=== PATIENT | male | born 1965 | race Caucasian/White ===

== ENCOUNTER 2020-05-07 04:04 | Outpatient (CLI) | payer MEDICAID, SELFPAY ==
[2020-05-09 17:11] LABS: COVID-19 RT-PCR Result NEGATIVE (Negative)
== END 2020-05-07 04:24 ==
PROVIDERS: PCP Family Medicine Adult Medicine; Visit Provider Surgery
DX: Z11.59 Encounter for screening for other viral diseases (principal); Z01.818 Encounter for other preprocedural examination
CPT/HCPCS: U0003

== ENCOUNTER 2020-05-12 10:07 | Day surgery (SDC) | payer MEDICAID, SELFPAY ==
--- NOTE | 2020-05-12 07:17 | W.COLOREPORT ---
Date of service: 05/12/20 Time of Service: 15:24 Colonoscopy Report Date of procedure: 05/12/20 Pre-op diagnosis general: Colon Cancer Screening Post-op diagnosis procedure note: other (polyps and diverticulosis) Procedure: Colonoscopy with polypectomy by cold forceps and hot snare Surgeon: Isabel Mallory Anesthesia proc note operative: other (General/ASA 1/Marcial Flores CRNA) Estimated blood loss (mL): 5 Pathology: other (sigmoid polyps x2) Complications: None Disposition: same day Indications: Mr. Zazueta is a pleasant 54-year-old gentleman who had a bout of diverticulitis in October of this year. He also complains of intermittent bright red blood per rectum. The blood is usually mixed with mucus. He does also tell me that when he was in the emergency department at [facility] in October they tested his stool and it was positive for occult blood. He has never had a colonoscopy before. The procedure was discussed with him in detail. We went over risks, benefits and complications. His questions were entertained and answered to his satisfaction. We also reviewed Covid testing and quarantine requirements. Risks, benefits and complications have been reviewed. Complications include but are not limited to bleeding, pain, perforation, missed small lesion/polyp, sore throat, aspiration and adverse reaction to the medications. Questions were entertained and answered to their satisfaction and they wished to proceed. No guarantees were given or implied. COVID-19 testing explained to the patient. Reason for test reviewed. Quarantine per state requirements reviewed with patient. Patient understands and agrees to testing. Proceed with colonoscopy and Covid testing. Prep: Miralax/Dulcolax Procedure Start Time: 15:24 Procedure End Time: 16:04 Retraction Time: 20 minutes Findings: One polyp in the sigmoid colon >1 cm in size was within a diverticulum Second larger pedunculated polyp in the sigmoid colon moderate diverticulosis Procedure Description: After informed consent was obtained the patient was taken to the procedure room and placed in a left decubitous position. Monitors were applied and a time out was done. The patients name, date of , procedure, allergies to medications and metal in their body was reviewed. The patient was then sedated. Once sedated and comfortable a rectal exam was done. External exam was normal. Internal exam revealed a normal sphincter tone and no palpable masses. The prostate felt smooth. The scope was then introduced and retro-flexed. No internal hemorrhoids were identified. The scope was then advanced to the cecum without difficulty. The ileocecal valve and appendiceal orifice were identified. The prep was adequate. The scope was then slowly retracted over 20 minutes back into the rectum. Polyps were removed with cold forceps. The polyp was at the edge of a diverticulum in the sigmoid colon. A second larger then 1 cm pedunculated polyp was removed with a hot snare in the sigmoid colon. There was moderate diverticulosis of the sigmoid colon. The scope was removed and the patient was woken up and taken back to Same day surgery in stable condition. The patient tolerated the procedure well and there were no immediate complications. Follow up: The patient should follow up in 3-5 years unless they develop changes in bowel habits or other new gastrointestinal complaints.
--- NOTE | 2020-05-12 07:18 | W.PM.DSUDISC ---
Discharge Plan Disposition Patient Disposition: HOME Condition: Good Discharge Details Reason For Visit: Colonoscopy Attending Provider: Isabel Mallory Primary Care Provider: Francisco Piña Home Meds and New Rx's Prescriptions: No Action No Known Home Meds RF: 0 Discharge Instructions Instructions: Diverticulosis (DC), Colorectal Polyps (DC) Additional Instructions: Findings: 2 polyps Follow up: depends on the final pathology Please call if you develop: fevers >101.5 Nausea or Vomiting Abdominal pain that is not transient DAY SURGERY UNIT POST ENDOSCOPY INSTRUCTIONS 1. Because there will be medication in your system for the next 24 hours, you may feel a little sleepy. Your coordination will be affected. Therefore: a. Do not drive or operate dangerous equipment for 24 hours. b. Do not drink alcohol beverages for 24 hours (not even beer). c. Plan to go home and rest for the day. 2. Generally there are no restrictions on your activity after a day or so has gone by, but you may feel a bit fatigued for a few days. 3 After you arrive home you may have a light meal and return to a normal diet as you can tolerate it without feeling sick to your stomach. 4. After surgery, you may feel pain or discomfort. This should be only transient, but if it persists please contact your doctor. 5. If there are any questions regarding the findings of your procedure, please feel free to contact your doctor. 6. If you are unable to contact your doctor with a problem, contact the hospital at [phone]. 7. Continue all your regular medications unless directed otherwise. I understand the above instructions and have no questions. Signature of Patient or Responsible Adult Escort Date/Time Name of Responsible Adult Escort Signature of Nurse Date/Time Activity:: Activity as Tolerated Diet:: As Tolerated Discharge Orders Discharge Orders: Discharge Order (Routine); Ordered 05/12/20 Ordered By: Isabel Mallory
[2020-05-12 10:20] VITALS: BP 123/84; PULSE 68; RESP 18; TEMP 36.2; O2SAT 97
[2020-05-12] MEDS: Lactated Ringers 1,000 ML 80 ML IV (10:39)
--- NOTE | 2020-05-12 15:30 | BOWEL_PTH ---
PATIENT: Enrike Zazueta LOC: [facility] U#:[id number] AGE/SX: 54/M ROOM: RE05/12/[address]: Isabel Mallory MD : 1965 BED: DIS: 05/12/2020 SPEC #: [id number] RECD: 05/12/20 16:23 STATUS: ABIGAIL REQ #: [id number] SABRINA: 05/12/20 15:[address]: Isabel Mallory DEPT: Surgical Specimen RECD BY: Nicole Delatorre ENTERED: 05/12/20 16:25 SP TYPE: Bowel OTHR DR: Francisco Piña Tissues: 1 - BIOPSY BOWEL 2 - BIOPSY BOWEL Procedures: GROSS AND MICRO LEVEL 4 Comments: [id number]
[2020-05-12] MEDS: Endoscopic Tattoo 5 ML SYR IJ (16:03)
[2020-05-12 16:49] VITALS: BP 130/92; PULSE 70; RESP 16; TEMP 36.5; O2SAT 100
== END 2020-05-12 17:35 | disposition home or self-care (01) ==
LOC: SUR 10:07
PROVIDERS: PCP Family Medicine Adult Medicine; Visit Provider Surgery
PROC: 0DJD8ZZ Inspection of Lower Intestinal Tract, Via Natural or Artificial Opening Endoscopic (ICD-10-PCS; CPT 45378; principal; 2020-05-12 12:00)
DX: Z12.11 Encounter for screening for malignant neoplasm of colon (principal); D12.5 Benign neoplasm of sigmoid colon; K57.30 Diverticulosis of large intestine without perforation or abscess without bleeding
CPT/HCPCS: 45385; 45380; 88305; J2001; J2704

== ENCOUNTER 2020-11-10 08:40 | Observation (INO) | payer MEDICAID, SELFPAY ==
[2020-11-10] VITALS (70 sets, daily range): BP systolic 103–152; BP diastolic 66–89; PULSE 64–81; RESP 14–25; TEMP 36.6–37; O2SAT 96–100
--- NOTE | 2020-11-10 08:30 | RT.EKG_ITS ---
APPROVED REPORT Exam: Resting ECG Reason for Exam: chest pain Patient Location: E HR:79 bpm ECG Measurements Heart Rate 79 AXIS WA 178 P 79 QRSd 83 QRS 55 QT 356 T 21 QTc 408 Conclusion Sinus rhythm. Right atrial enlargement Left ventricular hypertrophy w repolraiztion changes lateral vs st dep, no comparison available
--- NOTE | 2020-11-10 08:45 | DI.RAD_ITS ---
Exam(s) XR CHEST 2V PA LATERAL EXAM: XR CHEST 2V PA LATERAL CLINICAL HISTORY: Chest pain, SOB. TECHNIQUE: 2D digital imaging was performed. COMPARISON: No exams were available for comparison FINDINGS: Heart size is normal. The mediastinum is not widened. Lungs are clear. No infiltrates nor pleural effusions. No pneumothorax. There is abundant free air subjacent to the hemidiaphragms in the abdomen. IMPRESSION: No acute pulmonary findings.However, there is abundant free intraperitoneal air. Result called to ER provider DATA REPOSITORY: RADIATION DOSE DELIVERED:
--- OUTSIDE RECORDS SUMMARY | 2020-11-10 08:50 | XMS_ITS ---
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 disorders of kidney and ureter ALLERGIES No Known Allergies ENCOUNTERS Encounter Location Date Diagnosis [address] [place] Jul, Di sorder of [facility] and [facility] [place] ureter, unspecif ied N28.9 [id number] [place] Jun, Ot her specified disorders [facility] [place] of kidney and ur eter [id number] [place] Mar, Po lyp of corpus uteri [facility] [place] N84.0 and Polyp of colon [address] [address] [place] Feb, En counter for general [facility] [place] adult medical ex amination [phone] without abnormal findings Z00.[address] [place] Jan, En counter for general [facility] [place] adult medical ex amination [phone] without abnormal findings Z00.00 and Unspe cified abdominal pain R 10.9 IMMUNIZATIONS No Known Immunizations SOCIAL HISTORY Qualifiers Date Never Smoker REASON FOR REFERRAL FUNCTIONAL STATUS PLAN OF CARE Activity Details Follow Up prn Reason: Pending Test COMPREHENSIVE METABOLIC PROF ILE Pending Test CT ABD/PELVIS W&WO CONTRAST VITAL SIGNS Temperature 97.2 degrees Fahrenheit 2020-08-02 Temperature 98.2 degrees Fahrenheit 2019-02-11 Heart Rate 70 /min 2020-08-02 Heart Rate 72 /min 2019-04-22 Heart Rate 64 /min 2019-02-11 Height 72 in 2020-08-02 Height 72 in 2019-04-22 Height 72 in 2019-02-11 Weight 154 lbs 2020-08-02 Weight 162 lbs 2019-04-22 Weight 162 lbs 2019-02-11 BMI 20.88 kg/m2 2020-08-02 BMI 21.97 kg/m2 2019-04-22 BMI 21.97 kg/m2 2019-02-11 Respiratory Rate 16 /min 2020-08-02 Oximetry 96 % 2020-08-02 Oximetry 96 % 2019-04-22 Oximetry 96 % 2019-02-11 Blood pressure systolic 100 mm Hg 2020-08-02 Blood pressure diastolic 75 mm Hg 2020-08-02 MEDICATIONS Unknown Medications PROCEDURES Procedure Date Ordered Result Body Site venipuncture Mar 04, 2019 RESULTS Name Result Date Reference Range Colonoscopy CBC, WITH AUTO DIFF 2019-11-03 WBC 8.1 4.8-10.8 RBC 5.20 4.70-6.10 HGB 15.2 14.0-18.0 HCT 44.9 42.0-52.0 MCV 86.3 80.0-94.0 MCH 29.2 27.0-31.0 MCHC 33.9 32.0-37.0 RDW-CV 13.7 11.5-14.5 PLT 185 130-400 MPV 9.9 7.4-10.4 NE% 77.0 42.2-75.2 LY% 13.0 20.5-51.1 MO% 8.9 1.7-9.3 EO% 0.2 0.9-2.9 BA% 0.2 0.0-0.8 NE# 6.2 1.4-6.5 LY# 1.1 1.2-3.4 MO# 0.7 0.1-0.6 EO# 0.0 0.0-0.2 BA# 0.0 0.0-0.2 COMPREHENSIVE METABOLIC PROFILE 2019-11-03 SODIUM 138 136-145 POTASSIUM 4.4 3.5-5.1 CHLORIDE 103 98-111 CO2 28 22-32 CALCIUM 9.0 8.9-10.3 GLUCOSE 107 74-106 BUN 14 8-26 CREATININE 0.88 0.61-1.24 TOTAL BILIRUBIN 0.8 0.3-1.2 TOTAL PROTEIN 7.5 6.5-8.1 ALBUMIN 4.1 3.5-5.0 ALKALINE PHOS 58 32-92 AST 24 15-41 ALT 21 17-63 A/GAP 7.0 3.0-12.0 B/CR 15.9 8.0-20.0 OSMOLARITY 277 275-295 GLOBULIN 3.4 2.3-3.5 A/G 1.2 1.0-2.5 LACTIC ACID, PLASMA 2019-11-03 LACTIC ACID 1.2 0.5-2.2 LIPASE 2019-11-03 LIPASE 45 18-51 URINALYSIS DIP w/REFLEX MICRO 2019-11-03 COLOR Yellow YELLOW CLARITY Clear CLEAR SPECIFIC GRAVITY 1.025 1.000-1.030 pH 6.5 5.0-8.0 PROTEIN Negative NEGATIVE GLUCOSE Negative NEGATIVE KETONES Negative NEGATIVE UROBILINOGEN 0.2 E.U./dL 0.2 E.U./DL BILIRUBIN Negative NEGATIVE BLOOD Negative NEGATIVE LEUKOCYTES Negative NEGATIVE NITRITES Negative NEGATIVE CT ABD/PELVIS W CONTRAST 2019-11-03 COMPREHENSIVE METABOLIC PANEL 2019-03-04 GLUCOSE 76 65-99 UREA NITROGEN (BUN) 18 7-25 CREATININE 0.85 0.70-1.33 eGFR NON-AFR. GERMAN 99 > OR = 60 eGFR 115 > OR = 60 BUN/CREATININE RATIO NOT APPLICABLE 6-22 SODIUM 138 135-146 POTASSIUM 4.5 3.5-5.3 CHLORIDE 103 98-110 CARBON DIOXIDE 29 20-32 CALCIUM 9.3 8.6-10.3 PROTEIN, TOTAL 7.0 6.1-8.1 ALBUMIN 4.4 3.6-5.1 GLOBULIN 2.6 1.9-3.7 ALBUMIN/GLOBULIN RATIO 1.7 1.0-2.5 BILIRUBIN, TOTAL 0.5 0.2-1.2 ALKALINE PHOSPHATASE 54 40-115 AST 19 10-35 ALT 16 9-46 TSH, 3RD GENERATION W/REFLEX TO FT4 2019-03-04 TSH W/REFLEX TO FT4 3.41 0.40-4.50 CBC (INCLUDES DIFF/PLT) 2019-03-04 WHITE BLOOD CELL COUNT 6.2 3.8-10.8 RED BLOOD CELL COUNT 5.20 4.20-5.80 HEMOGLOBIN 15.3 13.2-17.1 HEMATOCRIT 45.7 38.5-50.0 MCV 87.9 80.0-100.0 MCH 29.4 27.0-33.0 MCHC 33.5 32.0-36.0 RDW 13.2 11.0-15.0 PLATELET COUNT 193 140-400 MPV 10.2 7.5-12.5 ABSOLUTE NEUTROPHILS 3776 1716-2711 ABSOLUTE LYMPHOCYTES 3055 129-4831 ABSOLUTE MONOCYTES 533 200-950 ABSOLUTE EOSINOPHILS 50 15-500 ABSOLUTE BASOPHILS 37 0-200 NEUTROPHILS 60.9 LYMPHOCYTES 29.1 MONOCYTES 8.6 EOSINOPHILS 0.8 BASOPHILS 0.6 LIPID PANEL 2019-03-04 CHOLESTEROL, TOTAL 208 <200 HDL CHOLESTEROL 47 >40 TRIGLYCERIDES 148 <150 LDL-CHOLESTEROL 134 CHOL/HDLC RATIO 4.4 <5.0 NON HDL CHOLESTEROL 161 <130 XR ABDOMEN 2 VIEWS 2019-02-11 REASON FOR VISIT f/u CT scan, repeat CT scan, f/u labs, LABS, new patient, annual physical, 3 week abdominal pain Insurance Providers [facility] Member Patient Patient Patient Patient Patient Subscriber Subscriber Subscriber Group Insurance Plan Plan Plan Plan ID Relationship Address Phone Name Date of ID Name Date of No Type Insurance Insurance Insurance Coverage to Subscriber Address Phone Name Dates [employer] [phone] [employer] self Enrike [id number] [place] [address] MEDICAID CLAIMS [id number] [place] self [place] [id number] [place] [employer] [address] [place] [address] [facility] [id number]
--- NOTE | 2020-11-10 08:55 | W.ED.GENAD ---
Discharge Plan Disposition Patient Disposition: [facility] INPATIENT Condition: Stable Discharge Details Clinical Impression: Left facial numbness Admit Date/Time: 11/10/20 14:49 Admit Provider: Aurelio Mendosa Attending Provider: Aurelio Mendosa Primary Care Provider: Francisco Piña ED Provider: Donna Kumar Medical Decision Making <Donna Kumar - Last Filed: 11/10/20 16:24> 55-year-old male presents to the ER chief complaint of left-sided chest pain which she describes as sharp radiates into his left arm and left side face. He describes this as numbness. He on initial exam he states that his pain is approximately 3 out of 10. He is postop from recent right kidney mass (Partial nephrectomy) removal surgery at [facility]. He was released from the hospital there 4 days ago. She also reports some mild shortness of breath with a productive cough of yellow sputum. Denies hemoptysis no leg swelling. Denies any fever or chills. He is alert and oriented x4 upon initial exam. Only medications that he is taking currently include oxycodone and Tylenol prior to arrival. Past medical history includes tubular adenoma of colon, diverticulitis. He is a non-smoker. He does report some significant family cardiac history. He reports 2 older brothers recently had stents placed. Work-up ordered including CBC, CMP, magnesium and serial troponins. 08 46: EKG was reviewed by [Dr. Zaheer Godfrey] ER attending, please see his official report. No old EKG available for comparison, repolarization changes in the lateral leads. Normal sinus rhythm, no STEMI. Differential diagnosis includes but not limited to CVA, PE, coronary artery disease. Patients Urologist is Honey Padgett at this time unable to pull up records from [facility]. Patient transported to x-ray. Initial labs show CBC largely within normal limits, no leukocytosis lymphocytes 1.10, sodium 144, potassium 3.4 BUN 17, creatinine 1.0 GFR greater than 60. Patient does have some transaminitis, AST 89, ALT 194 alk phos 160 initial troponin within normal limits. Less than 0.05. CT a brain and neck ordered and CT chest rule out PE. XR CHEST 2V PA LATERAL EXAM: XR CHEST 2V PA LATERAL CLINICAL HISTORY: Chest pain, SOB. TECHNIQUE: 2D digital imaging was performed. COMPARISON: No exams were available for comparison FINDINGS: Heart size is normal. The mediastinum is not widened. Lungs are clear. No infiltrates nor pleural effusions. No pneumothorax. There is abundant free air subjacent to the hemidiaphragms in the abdomen. IMPRESSION: No acute pulmonary findings.However, there is abundant free intraperitoneal air. Result called to ER provider Patient has noted free air in the diaphragm as reported above, this could be expected postop. 1001: Upon further questioning of patient's family he has had a right-sided partial nephrectomy, call received from diagnostic imaging tax examining technician with concern for the amount of contrast to be given for CTA and CT chest. At this time his GFR is greater than 60. I did discuss with her that if cannot give contrast from both would prefer the chest CT with contrast CT head without. 10:34 AM: Discussed CT results with radiologist who notes some hypodensity areas on the noncontrast head CT. He recommends an MRI/MRA of the brain without contrast to further characterize and rule out CVA. Discussed plan with patient and family who verbalized understanding. Patient is alert and oriented hemodynamically stable, he does report left-sided headache which began approximately 2 AM last night which has now resolved after taking Tylenol. EXAM: CT CHEST PE CTA CLINICAL HISTORY: Chest pain, recent Surgery, R/O PE. TECHNIQUE: Imaging Protocol: CT angiography of the chest was performed using pulmonary embolus protocol. Multi planar reconstructions were performed. CONTRAST MATERIAL: Intravenous: Omnipaque 350 Contrast volume: 100 cc COMPARISON: No exams were available for comparison FINDINGS: CHEST: Free intraperitoneal air noted subjacent to both hemidiaphragms. PULMONARY ARTERIES: There are no intraluminal filling defects to suggest acute pulmonary emboli. LUNGS: Atelectasis-mild infiltrate in the right lung base, exhibiting benign appearance. No associated pleural effusion. Lesser amount of the same findings seen in the opposite-left lung base also in the posterior basal segment of the lower lobe.. No obvious focal findings in trachea and mainstem bronchi. MEDIASTINUM: There is no hilar nor mediastinal adenopathy. CARDIAC: Heart size is upper normal. There is no pericardial effusion.Caliber of the thoracic aorta is within normal limits. There is no significant shift of the interventricular septum. PARTIALLY VISUALIZED UPPERMOST ABDOMEN: There is pneumoperitoneum. Gallstones also noted. OSSEOUS: No significant osseous lesions.. IMPRESSION: 1. No evidence of acute pulmonary emboli. No evidence of pulmonary infarction.Mild infiltrate in the lung bases, right more than left. No pleural effusions. No ominous pulmonary nodules nor intrathoracic adenopathy. 2. Cholelithiasis is incidentally noted. Also pneumoperitoneum (recent partial nephrectomy). CT Head W/O: FINDINGS: There are no skull fractures nor fluid in the visualized paranasal sinuses. There is no evidence of intracranial hemorrhage, mass effect, or shift of midline structures. There are no extra-axial fluid collections. The ventricles are not enlarged or shifted and there is no blood within the ventricular system nor within the basal cisterns. There is a well-defined hypodensity measuring 7 x 5 millimeters on the left side which is possibly sub lenticular cyst. However, there is also another 4 x 3 millimeter hypodensity on left side at the level of the external capsule. Both nonhemorrhagic. Similar findings are not seen on the opposite-right side. No associated hemorrhage or surrounding edema. IMPRESSION: Two areas of abnormal hypodensity in left side of the brain as described above. Recommend follow-up MRI when clinically possible. 10:30 AM: MRI MRA brain without contrast ordered. At this time PE has been ruled out, initial troponin is within normal limits so suspicion for cardiac event decreased, high suspicion for possible CVA status post partial nephrectomy. 1100: DI requested to send Images to [facility], Will consult with neurology for possible transfer. 1113: Spoke with Sanford at [facility] transfer center regarding neurology consult and possible transfer. [facility] to call me back. 1135: Repeat neurological exam, patient reports that numbness is unchanged, horizontal jerk nystagmus still present, patient is able to puff out his cheeks at this time, continues to have no pronator drift, left lower extremity somewhat weaker than the right. He remains alert and oriented x4, talkative. 1151: Discussed patient case and details with Dr. Servin with with neurology at [facility] ED would like to speak after the MRI/MRA is done. His recommendations include aspirin which was already given, will review triage the urgency for transfer after MRI read. 1357: MR BRAIN WO EXAM: MR BRAIN WO CLINICAL HISTORY: Left side facial numbness, TECHNIQUE: Multiplanar multisequence MRI of the brain was performed. COMPARISON: CT CT HEAD WO from 11/10/[address] HEAD WO from 11/10/2020 FINDINGS: CEREBRAL PARENCHYMA: There is no evidence of intracranial hemorrhage, mass effect, or shift of midline structures. There are no extra-axial fluid collections. Ventricles are not enlarged or shifted. There is no significant focal signal abnormality in the cerebellar hemispheres nor within the jewell, midbrain, and thalami. There is a small 3 millimeter well-defined CSF intensity finding in the left external capsule which corresponds to what is seen on the CT scan. This, however, does not exhibit abnormal focal signal on diffusion imaging. There is no evidence of acute territorial infarction. PITUITARY GLAND: No mass nor parasellar abnormality. No obvious abnormality in the cavernous sinuses. FLOW VOIDS: The expected flow void are noted. No evidence of obvious aneurysm nor obvious vascular malformation. PARANASAL SINUSES: The visualized paranasal sinuses appear unremarkable. No obvious finding ORBITS: No obvious findings. IMPRESSION: No significant acute intracranial findings on this noninfused MRI scan of the brain. Small nonacute lacune evident in the left external capsule. 1435: Spoke with Dr. Hensley with neurology at [facility], discussed MRI results at this time he sees no indication for need for transfer nor does he give any further recommendations at this time. Discussed findings with patient patient son verbalized understanding. At this time I do recommend admission for observation and rule out TIA. 1443: Call to hospitalist Dr. Mendosa regarding possible admission for observation. He agrees to accept patient for transfer. Plan to admit here for observation. <Zaheer Godfrey MD - Last Filed: 11/10/20 13:34> Patient seen, examined, discussed with Kumar. I agree with her assessment and plan including consultation and advanced imaging. HPI <Donna José - Last Filed: 11/10/20 16:24> General Mode of arrival: ambulatory. Date/Time Provider Initiated Documentation: 11/10/20 08:40. Limitations to Documentation: no limitations. Information obtained by: patient. HPI Narrative: 55-year-old male presents to the ER chief complaint of left-sided chest pain which he describes as sharp radiates into his left arm and left side face. He describes this as numbness. He on initial exam he states that his pain is approximately 3 out of 10. He is postop from recent right kidney mass (Partial nephrectomy) removal surgery at [facility]. He was released from the hospital there 4 days ago. She also reports some mild shortness of breath with a productive cough of yellow sputum. Denies hemoptysis no leg swelling. Denies any fever or chills. He is alert and oriented x4 upon initial exam. Only medications that he is taking currently include oxycodone and Tylenol prior to arrival. Past medical history includes tubular adenoma of colon, diverticulitis. He is a non-smoker. He does report some significant family cardiac history. He reports 2 older brothers recently had stents placed. Related Data Home Medications Medication Instructions Recorded Confirmed oxycodone 5 mg PO PRN 11/10/20 Allergies Allergy/AdvReac Type Severity Reaction Status Date / Time No Known Allergies Allergy Verified 11/10/20 08:50 General Stated Complaint: Chest Pain NIEVES: 2 Review of Systems <Donna Kumar - Last Filed: 11/10/20 16:24> Narrative: Constitutional: Negative for weight loss, alert and oriented, well groomed, normal body habitus, appears comfortable. Denies fever or chills. HEENT: Denies trauma, headaches, blurry vision, nasal discharge, sore throat, trouble swallowing. Chest: Denies palpitations, irregular rhythm, hypertension. Respiratory: Denies hemoptysis. Reports shortness of breath, cough with yellow productive sputum. GI: Denies abdominal pain, nausea, vomiting, constipation. Endorses diarrhea. : Denies dysuria, hematuria, rectal bleeding. Recent right kidney surgery. Neuro: Denies dizziness, blurry vision, weakness, syncope, headache. Reports left-sided facial numbness and left arm numbness. Hematologic: Denies easy bruising, intolerance to heat or cold, hair loss. PFSH <Donna Kumar - Last Filed: 11/10/20 16:24> Medical History Hx of diverticulitis of colon (~11/15/19) Family History Mother , of complications of Trauma. Was hit by a truck while crossing the road Kidney malignancy Paternal Uncle Colon cancer Social History Smoking/Tobacco Use Status: Never Smoking risk assessment performed?: Yes Alcohol Intake: current Alcohol Intake frequency: holidays/special occasions only Drug use: Never Substance use type: does not use Current gender identity: male Do you feel safe at home: Yes Do you feel safe in your relationship?: Yes Exam <Donna Kumar - Last Filed: 11/10/20 16:24> Narrative Exam Narrative: Constitutional: Alert and oriented x3. Appears stated age. Normal body habitus. Head: Normocephalic, no trauma. Eyes: Pupils PERRLA, Red reflex noted, EOM's intact. Does have some jerk nystagmus, 2 beat Seccade. Eyelids symmetrical without lesions, discharge, or swelling. ENT: Bilateral TM's WNL, External ear normal to inspection, no mastoid TTP, swelling, or erythema, Nasal turbinates WNL, no nasal discharge. Normal dentition, Posterior pharynx WNL, no exudate. Chest: RRR, Normal S1, S2, distal pulses intact. Resp: Lungs clear to auscultation bilaterally, no wheezes, rales, or rhonchi. Abdomen: Healing laparoscopic incisions noted to the right lower abdominal wall, Dermabond covering incision, no surrounding erythema, induration or swelling noted. Musculoskeletal: Normal gait, 5/5 strength to all four extremities. Skin: No suspicious rashes or lesions. Capillary refill less than 2 sec. Neurologic: Cranial nerves II-XII intact. Alert and oriented x 3. Bilateral [id number]-yy-[id number] lower extremities intact. No pronator drift. Strength 4+ left lower extremity, patient unable to blow out cheeks, 2 beat horizontal seccade noted on EOM exam, slight left mouth downward facial droop. Hematologic/Lymphatic: No ecchymosis, no lymphadenopathy. Course <Donna José - Last Filed: 11/10/20 16:24> Vital Signs Vital signs: Vital Signs Temperature 36.6 C 11/10/20 08:45 Pulse 81 11/10/20 08:45 Respiratory Rate 16 11/10/20 08:45 Blood Pressure 152/83 H 11/10/20 08:45 Pulse Oximetry 99 11/10/20 08:45 Temperature 36.6 C 11/10/20 08:45 Temperature Source Skin 11/10/20 08:45 Pulse 81 11/10/20 08:45 Respiratory Rate 16 11/10/20 08:45 Respiratory Effort Non-Labored 11/10/20 08:45 Blood Pressure 152/83 H 11/10/20 08:45 Blood Pressure Position Supine 11/10/20 08:45 Pulse Oximetry 99 11/10/20 08:45 Pain Level 1 11/10/20 08:45
[2020-11-10] MEDS: Aspirin 81 MG CHEW 324 MG CH (09:00)
[2020-11-10 09:07] LABS: Abs Immature Grans 0.02 10^3/uL (0.0-0.06); Absolute Basophil Count 0.02 10^3/uL (0.0-0.2); Absolute Eosinophil Count 0.09 10^3/uL (0.0-0.7); Absolute Monocyte Count 0.53 10^3/uL (0.1-0.8); Absolute Neutrophil Count 3.86 10^3/uL (1.2-6.7); Basophils % 0.4; Eosinophils % 1.6; HCT 43.6 % (40.0-50.0); HGB 14.8 g/dL (13.5-17.5); Immature Grans % 0.4; Lymphocytes % 19.6; MCH 29.7 pg (27.0-33.0); MCHC 33.9 % (32.0-36.0); MCV 87.6 fL (80-95); Monocytes % 9.4; Neutrophils % 68.6; Nucleated RBC 0 %; Platelet Count 203 10^3/uL (130-400); RBC 4.98 10^6/uL (4.36-5.78); RDW 12.8 % (11.8-14.1); RDW-SD 40.9 fL; WBC 5.62 10^3/uL (4.4-10.8)
[2020-11-10 09:22] LABS: ALT 194 U/L (16-63); AST 89 U/L (15-37); Albumin 3.4 g/dL (3.4-5.0); Alkaline Phosphatase 160 U/L (46-116); Anion Gap 7.3 mmol/L (3-11); BUN 17 mg/dL (7-18); Bilirubin, Total 0.6 mg/dL (0.2-1.0); CO2 31.7 mmol/L (21.0-32.0); Chloride 105 mmol/L (98-107); Glucose 101 mg/dL (74-106); Potassium 3.4 mmol/L (3.5-5.1); Sodium 144 mmol/L (136-145); Total Protein 7.7 g/dL (6.4-8.2)
[2020-11-10 09:24] LABS: Troponin I < 0.05 ng/mL (<0.06)
--- NOTE | 2020-11-10 10:01 | DI.CT_ITS ---
Exam(s) CT HEAD WO EXAM: CT HEAD WO CLINICAL HISTORY: Facial numbness, Facial droop R/O CVA. TECHNIQUE: Imaging Protocol: Axial computed tomography images with coronal and sagittal reformatted images were created and reviewed COMPARISON: CR XR CHEST 2V PA LATERAL from 11/10/2020 CR XR CHEST 2V PA LATERAL from 11/10/2020 FINDINGS: There are no skull fractures nor fluid in the visualized paranasal sinuses. There is no evidence of intracranial hemorrhage, mass effect, or shift of midline structures. There are no extra-axial fluid collections. The ventricles are not enlarged or shifted and there is no blo od within the ventricular system nor within the basal cisterns. There is a well-defined hypodensity measuring 7 x 5 millimeters on the left side which is possibly titus b lenticular cyst. However, there is also another 4 x 3 millimeter hypodensity on left side at the l evel of the external capsule. Both nonhemorrhagic. Similar findings are not seen on the opposite-ri ght side. No associated hemorrhage or surrounding edema. IMPRESSION: Two areas of abnormal hypodensity in left side of the brain as described above. Recommend follow-up MRI when clinically possible. RADIATION DOSE DELIVERED: 799.94mGy.cm Total DLP DATA REPOSITORY: All CT scans at this facility are submitted to the National Radiology Data Registry (NRDR) Dose Index Registry (DIR) with the [employer] ([employer]). RADIATION OPTIMIZATION: All CT scans at this facility use at least one of these dose optimization te chniques: automated exposure control; mA and/or kV adjustment per patient size (includes targeted exa ms where dose is matched to clinical indication); or iterative reconstruction.
--- NOTE | 2020-11-10 10:09 | DI.CT_ITS ---
Exam(s) CT CHEST PE CTA EXAM: CT CHEST PE CTA CLINICAL HISTORY: Chest pain, recent Surgery, R/O PE. TECHNIQUE: Imaging Protocol: CT angiography of the chest was performed using pulmonary embolus zhou col. Multi planar reconstructions were performed. CONTRAST MATERIAL: Intravenous: Omnipaque 350 Contrast volume: 100 cc COMPARISON: No exams were available for comparison FINDINGS: CHEST: Free intraperitoneal air noted subjacent to both hemidiaphragms. PULMONARY ARTERIES: There are no intraluminal filling defects to suggest acute pulmonary emboli. LUNGS: Atelectasis-mild infiltrate in the right lung base, exhibiting benign appearance. No associat ed pleural effusion. Lesser amount of the same findings seen in the opposite-left lung base also in the posterior basal segment of the lower lobe.. No obvious focal findings in trachea and mainstem br onchi. MEDIASTINUM: There is no hilar nor mediastinal adenopathy. CARDIAC: Heart size is upper normal. There is no pericardial effusion.Caliber of the thoracic aorta is within normal limits. There is no significant shift of the interventricular septum. PARTIALLY VISUALIZED UPPERMOST ABDOMEN: There is pneumoperitoneum. Gallstones also noted. OSSEOUS: No significant osseous lesions.. IMPRESSION: 1. No evidence of acute pulmonary emboli. No evidence of pulmonary infarction.Mild infiltrate in the lung bases, right more than left. No pleural effusions. No ominous pulmonary nodules nor intrathor acic adenopathy. 2. Cholelithiasis is incidentally noted. Also pneumoperitoneum (recent partial nephrectomy). RADIATION DOSE DELIVERED: 326.02mGy.cm Total DLP DATA REPOSITORY: All CT scans at this facility are submitted to the National Radiology Data Registry (NRDR) Dose Index Registry (DIR) with the [employer] (ACR). RADIATION OPTIMIZATION: All CT scans at this facility use at least one of these dose optimization te chniques: automated exposure control; mA and/or kV adjustment per patient size (includes targeted exa ms where dose is matched to clinical indication); or iterative reconstruction.
[2020-11-10] MEDS: Normal Saline 250 ML IV (10:10)
--- NOTE | 2020-11-10 10:15 | DI.MRI_ITS ---
Exam(s) MR BRAIN WO EXAM: MR BRAIN WO CLINICAL HISTORY: Left side facial numbness, TECHNIQUE: Multiplanar multisequence MRI of the brain was performed. COMPARISON: CT CT HEAD WO from 11/10/[address] HEAD WO from 11/10/2020 FINDINGS: CEREBRAL PARENCHYMA: There is no evidence of intracranial hemorrhage, mass effect, or shift of midline structures. There are no extra-axial fluid collections. Ventricles are not enlarged or shifted. There is no significant focal signal abnormality in the cerebellar hemispheres nor within the jewell, m idbrain, and thalami. There is a small 3 millimeter well-defined CSF intensity finding in the left external capsule which c orresponds to what is seen on the CT scan. This, however, does not exhibit abnormal focal signal on diffusion imaging. There is no evidence of acute territorial infarction. PITUITARY GLAND: No mass nor parasellar abnormality. No obvious abnormality in the cavernous sinuses. FLOW VOIDS: The expected flow void are noted. No evidence of obvious aneurysm nor obvious vascular ma lformation. PARANASAL SINUSES: The visualized paranasal sinuses appear unremarkable. No obvious finding ORBITS: No obvious findings. IMPRESSION: No significant acute intracranial findings on this noninfused MRI scan of the brain. Small nonacute lacune evident in the left external capsule. DATA REPOSITORY:
--- NOTE | 2020-11-10 10:15 | DI.MRI_ITS ---
Exam(s) MR ANGIO BRAIN WO EXAM: MR ANGIO BRAIN WO CLINICAL HISTORY: R/O CVA, Left sided facial numbness, droop TECHNIQUE: Performed on 1.5 riccardo unit with [id number] sequence. No IV contrast. COMPARISON: CT scan earlier today was reviewed. Also conventional brain MRI. FINDINGS: ANTERIOR CIRCULATION: Both internal carotid arteries are patent in the skull base-carotid canals as w ell as within the cavernous sinuses. Supraclinoid aspects are patent. Both middle cerebral arteries are patent. No intraluminal thrombus nor aneurysms evident in these vessels out to the sylvian fiss ure branches. Both A1 segments are patent as are the anterior cerebral arteries. There is no evidence of aneurysm at the level of the anterior communicating artery. POSTERIOR CIRCULATION: The basilar artery is formed at the skull base by both vertebral arteries. the basilar artery ascend s in the midline with normal luminal diameter. distally it gives off superior cerebellar arteries an d above this level terminates as patent bilateral posterior cerebral arteries. IMPRESSION: 1. Patent intracranial arteries as described above. 2. No aneurysms evident DATA REPOSITORY:
[2020-11-10] MEDS: Omnipaque 350 MG/ML 100 ML BTL IJ (10:37)
--- NOTE | 2020-11-10 11:30 | RT.EKG_ITS ---
APPROVED REPORT Exam: Resting ECG Reason for Exam: repeat Patient Location: E HR:68 bpm ECG Measurements Heart Rate 68 AXIS ND 173 P 71 QRSd 86 QRS 63 QT 376 T 40 QTc 399 Conclusion Sinus rhythm...normal P axis, V-rate 60- 99
[2020-11-10 12:24] LABS: Troponin I < 0.05 ng/mL (<0.06)
--- NOTE | 2020-11-10 12:38 | NUR.NOTE ---
Nursing Note: Sylvester Millie son in law [phone]
[2020-11-10 15:56] LABS: Source Nasal/Nares
[2020-11-10 16:32] LABS: TSH 3.78 uIU/mL (0.36-3.74)
--- NOTE | 2020-11-10 17:01 | W.PM.HP.N ---
Date of service: 11/10/20 Time of Service: 17:01 Assessment and Plan Assessment and plan (1) Left facial numbness: Status: Acute Assessment and plan: accompanied by paresthesia of left arm and some noticed numbness in left leg; all transient and resolving. Lacune noted on CT. MRI brain was w/o contrast d/t recent renal surgery (however, renal function is normal). Repeat MRI brain with contrast if symptoms return. ASA daily. No h/o HLD. Lipid panel in the AM No h/o HTN. Monitor. Telemetry. (2) Renal mass: Status: Acute Assessment and plan: s/p resection. Recovering well. (3) Pulmonary infiltrates: Status: Acute Assessment and plan: He did endorse cough with yellow sputum. Infiltrates in both bases. No WBC elevation or fever. Could be atelectasis. Will initiate Levaquin 750mg daily. Incentive spirometry. History of Present Illness History of Present Illness Chief Complaint: Left facial droop and numbness Narrative: This is a 55 yo male that was released from [facility] [place] 4 days prior to this admission after a partial R nephrectomy for renal mass. He was woken at 2AM on the day of this admission with a sharp/burning pain in the left chest/breast that then radiated to the axilla, left neck and then down the left arm. He waited for appx 15 mins before getting off the couch where he was sleeping and believes he may have crawled to where his phone was across the room. He went back to the couch. He felt his face and noted the left side felt numb. He lay awake until 3AM and then doozed off. When was woken in the morning by his son-in-law who was there to bring a script to him. He noted, as had the pt., a left facial droop. He was brought to the ED. The chest pain had resolved. The numb sensation had started to resolve and continued to improve during the time spent in the ED. Lab showed no leukocytosis lymphocytes 1.10, sodium 144, potassium 3.4 BUN 17, creatinine 1.0 GFR greater than 60. Patient does have some transaminitis, AST 89, ALT 194 alk phos 160 initial troponin within normal limits. Less than 0.05. ECG unremakable. No STEMI. CT brain showed a small lacune. An MRI/MRA w/o contrast showed no vessel narrowing/stenosis and no lesion/ischemia noted. CTA chest w/o pulmonary embolism. Mild infiltrate in lung bases noted, right greater than left. Admitted for monitoring; possible TIA. Review of Systems All systems reviewed & are unremarkable except as noted in HPI and below PFSH Medical History Hx of diverticulitis of colon (~11/15/19) Family History Mother , of complications of Trauma. Was hit by a truck while crossing the road Kidney malignancy Paternal Uncle Colon cancer Social History Smoking/Tobacco Use Status: Never Smoking risk assessment performed?: Yes Alcohol Intake: current Alcohol Intake frequency: holidays/special occasions only Drug use: Never Substance use type: does not use Current gender identity: male Do you feel safe at home: Yes Do you feel safe in your relationship?: Yes Meds Allergies and Home Medications Allergies Allergy/AdvReac Type Severity Reaction Status Date / Time No Known Allergies Allergy Verified 11/10/20 08:50 Home Medications Medication Instructions Recorded Confirmed Type oxycodone 5 mg PO PRN 11/10/20 History Exam Const General: cooperative and no acute distress Nutritional Appearance: average body habitus Orientation: alert and oriented x3 Eyes Sclera: sclerae normal Pupils: PERRL EOM: EOM intact bilaterally Neck Neck: full ROM and no JVD Resp Effort & Inspection: normal respiratory effort Auscultation: clear to auscultation bilaterally Cardio Rate: regular rate Rhythm: regular rhythm Heart Sounds: S1 normal and S2 normal GI Palpation: soft and nontender Neuro General: no focal motor deficits Cranial Nerves: no nystagmus, facial strength normal, tongue midline and hearing normal Speech: speech normal Motor: muscle tone normal throughout Sensory Exam: no sensory deficits noted Extrem General: no pedal edema and no calf tenderness Psych Mental Status: mental status grossly normal Speech and Movement: speech and movement normal Affect: normal affect Results Labs Result diagrams: 11/11/20 05:50 11/11/20 05:50 Labs: Laboratory Results - last 24 hr 11/10/20 11/10/20 11/10/20 08:55 08:55 11:45 WBC 5.62 RBC 4.98 Hgb 14.8 Hct 43.6 MCV 87.6 MCH 29.7 MCHC 33.9 RDW 12.8 Plt Count 203 MPV 9.0 Immature Gran % 0.4 Neutrophils % 68.6 Lymphocytes % 19.6 Monocytes % 9.4 Eosinophils % 1.6 Basophils % 0.4 Nucleated RBC % 0 Absolute Neutrophils 3.86 Absolute Lymphocytes 1.10 L Absolute Monocytes 0.53 Absolute Eosinophils 0.09 Absolute Basophils 0.02 Sodium 144 Potassium 3.4 L Chloride 105 Carbon Dioxide 31.7 Anion Gap 7.3 BUN 17 Creatinine 1.0 Estimated GFR/1.73 m2 >= 60.00 Glucose 101 Calcium 9.0 Magnesium 2.0 Total Bilirubin 0.6 AST 89 H ALT 194 H Alkaline Phosphatase 160 H Troponin I < 0.05 < 0.05 Total Protein 7.7 Albumin 3.4 TSH COVID-19 Source 11/10/20 11/10/20 11:45 15:25 WBC RBC Hgb Hct MCV MCH MCHC RDW Plt Count MPV Immature Gran % Neutrophils % Lymphocytes % Monocytes % Eosinophils % Basophils % Nucleated RBC % Absolute Neutrophils Absolute Lymphocytes Absolute Monocytes Absolute Eosinophils Absolute Basophils Sodium Potassium Chloride Carbon Dioxide Anion Gap BUN Creatinine Estimated GFR/1.73 m2 Glucose Calcium Magnesium Total Bilirubin AST ALT Alkaline Phosphatase Troponin I Total Protein Albumin TSH 3.78 H COVID-19 Source Nasal/nares Last Vital Signs Temp 36.8 C 11/10/20 16:27 Pulse 78 11/10/20 16:27 Resp 16 11/10/20 16:27 BP 129/74 11/10/20 16:27 Pulse Ox 99 11/10/20 16:27
[2020-11-10] MEDS: Potassium Chloride 20 MEQ TABCR PO (20:07)
[2020-11-10 22:07] LABS: COVID-19 PCR Negative (Negative)
[2020-11-11 03:14] VITALS: BP 119/68; PULSE 67; RESP 16; TEMP 36.4; O2SAT 98
[2020-11-11 07:00] VITALS: PULSE 57
[2020-11-11 07:24] VITALS: BP 124/79; PULSE 65; RESP 18; TEMP 36.4; O2SAT 98
[2020-11-11 07:26] LABS: Abs Immature Grans 0.02 10^3/uL (0.0-0.06); Absolute Basophil Count 0.03 10^3/uL (0.0-0.2); Absolute Eosinophil Count 0.14 10^3/uL (0.0-0.7); Absolute Lymphocyte Count 1.24 10^3/uL (1.2-3.4); Absolute Monocyte Count 0.56 10^3/uL (0.1-0.8); Absolute Neutrophil Count 4.37 10^3/uL (1.2-6.7); Basophils % 0.5; Eosinophils % 2.2; HCT 40.1 % (40.0-50.0); HGB 13.6 g/dL (13.5-17.5); Immature Grans % 0.3; Lymphocytes % 19.5; MCH 29.3 pg (27.0-33.0); MCHC 33.9 % (32.0-36.0); MCV 86.4 fL (80-95); MPV 9.6 fL (8.0-11.0); Monocytes % 8.8; Neutrophils % 68.7; Nucleated RBC 0 %; Platelet Count 200 10^3/uL (130-400); RBC 4.64 10^6/uL (4.36-5.78); RDW 13.1 % (11.8-14.1); RDW-SD 40.9 fL; WBC 6.36 10^3/uL (4.4-10.8)
[2020-11-11 07:36] LABS: Anion Gap 7.9 mmol/L (3-11); BUN 17 mg/dL (7-18); CO2 28.1 mmol/L (21.0-32.0); CREATININE 0.9 mg/dL (0.70-1.30); Calcium 8.8 mg/dL (8.5-10.1); Chloride 105 mmol/L (98-107); Glucose 92 mg/dL (74-106); Sodium 141 mmol/L (136-145)
[2020-11-11 07:47] LABS: Calculated LDL 109 mg/dL (<100); Cholesterol 163 mg/dL (<200); HDL Cholesterol 37 mg/dL (40-60); Triglyceride 86 mg/dL (<150)
[2020-11-11] MEDS: Aspirin 81 MG CHEW PO (08:11)
[2020-11-11] MEDS: Potassium Chloride 20 MEQ TABCR PO (08:12)
--- NOTE | 2020-11-11 09:17 | DSE_ITS ---
Date of service: 11/11/20 Time of Service: 10:54 DS: Diagnosis Discharge Diagnosis (1) Left facial numbness: Status: Acute (2) Renal mass: Status: Acute (3) Pulmonary infiltrates: Status: Acute Discharge Plan Disposition Condition: Stable Discharge Details Reason For Visit: TIA Admit Date/Time: 11/10/20 14:49 Admit Provider: Aurelio Mendosa Attending Provider: Aurelio Mendosa Primary Care Provider: Francisco Piña Hospital Course Hospital Course: This is a 55 yo male that was released [place] [facility] [place] prior to this admission after a partial R nephrectomy for renal mass. He was woken at 2AM on the day of this admission with a sharp/burning pain in the left chest/breast that then radiated to the axilla, left neck and then down the left arm. He waited for appx 15 mins before getting off the couch where he was sleeping and believes he may have crawled to where his phone was across the room. He went back to the couch. He felt his face and noted the left side felt numb. He lay awake until 3AM and then dozed off. When was woken in the morning by his son-in-law who was there to bring a script to him. He noted, as had the pt., a left facial droop. He was brought to the ED. The chest pain had resolved. The numb sensation had started to resolve and continued to improve during the time spent in the ED. Lab showed no leukocytosis lymphocytes 1.10, sodium 144, potassium 3.4 BUN 17, creatinine 1.0 GFR greater than 60. Patient does have some transaminitis, AST 89, ALT 194 alk phos 160 initial troponin within normal limits. Less than 0.05. ECG unremakable. No STEMI. CT brain showed a small lacune. An MRI/MRA w/o contrast showed no vessel narrowing/stenosis and no lesion/ischemia noted. CTA chest w/o pulmonary embolism. Mild infiltrate in lung bases noted, right greater than left. The AM following admission, he endorsed no paresthesias. He was ambulating w/o difficulty. Exam was benign for any abnormal neurologic findings. He will continue taking an 81 mg aspirin daily. Schedule f/u with Neurology for the next 1-2 weeks. Home Meds and New Rx's Prescriptions: New aspirin 81 mg Tablet,Chewable 81 mg PO DAILY Qty: 0 RF: 0 Continued oxycodone 5 mg tablet 5 mg PO PRNRF: 0 Discharge Instructions Instructions: Self Care Measures After a Stroke (DC) Stand Alone Forms: Nursing Discharge Form Referrals: Zulay Foy MD [ [facility] STAFF PHYSICIAN] - (Office will call you with appointment date and time. ) Activity:: Activity as Tolerated DS: Summary Time Spent with Patient providing and/or coordinating discharge services: Less than 30 minutes Status at Discharge Functional status at discharge: independent ambulation Overall status at discharge: patient is back to baseline Mental Status: mental status grossly normal Speech and Movement: speech and movement normal Mood: congruent mood Affect: normal affect Exam Const General: cooperative and no acute distress Nutritional Appearance: average body habitus Orientation: alert and oriented x3 Eyes Sclera: sclerae normal Pupils: PERRL EOM: EOM intact bilaterally and No nystagmus Resp Effort & Inspection: normal respiratory effort Auscultation: clear to auscultation bilaterally Cardio Rate: regular rate Rhythm: regular rhythm Heart Sounds: S1 normal and S2 normal Neuro General: no focal motor deficits Cranial Nerves: tongue midline and no nystagmus Cognition: normal cognition Speech: speech normal Gait: normal gait Motor: muscle tone normal throughout and no tremors Sensory Exam: no sensory deficits noted Psych Mental Status: mental status grossly normal Speech and Movement: speech and movement normal Mood: congruent mood Affect: normal affect DS: Data Vitals/I&O Vitals and I&O: Vital Signs Temperature 36.4 C L 11/11/20 07:24 Temperature Source Tympanic 11/11/20 07:24 Pulse 65 11/11/20 07:24 Pulse Rhythm Regular 11/11/20 05:00 Pulse 71 11/10/20 16:01 Respiratory Rate 18 11/11/20 07:24 Respiratory Effort Non-Labored 11/11/20 05:00 Respiratory Depth Normal 11/11/20 05:00 Respiratory Pattern Normal 11/11/20 05:00 Blood Pressure 124/79 11/11/20 07:24 Blood Pressure Mean 85 11/10/20 16:01 Blood Pressure Position Supine 11/10/20 08:45 Pulse Oximetry 98 11/11/20 07:24 Oxygen Delivery Method Room Air 11/11/20 07:24 Oxygen Flow Rate 0 11/11/20 07:24 Pain Level 0 11/11/20 07:24 Intake & Output 11/10/20 11/10/20 11/11/20 11:59 23:59 11:59 Intake Total 250 / 250 Balance 250 / 250 Weight 67.5 kg 67.132 kg Intake: Oral 250 / 250 Other: Urine Appearance Clear Clear Voiding Methods Toilet Data Completed and Pending Labs on day of discharge: Labs from last 24 hours 11/11/20 11/11/20 11/10/20 05:50 05:50 15:25 WBC 6.36 RBC 4.64 Hgb 13.6 Hct 40.1 MCV 86.4 MCH 29.3 MCHC 33.9 RDW 13.1 Plt Count 200 MPV 9.6 Immature Gran % 0.3 Neutrophils % 68.7 Lymphocytes % 19.5 Monocytes % 8.8 Eosinophils % 2.2 Basophils % 0.5 Nucleated RBC % 0 Absolute Neutrophils 4.37 Absolute Lymphocytes 1.24 Absolute Monocytes 0.56 Absolute Eosinophils 0.14 Absolute Basophils 0.03 Sodium 141 Potassium 4.0 Chloride 105 Carbon Dioxide 28.1 Anion Gap 7.9 BUN 17 Creatinine 0.9 Estimated GFR/1.73 m2 >= 60.00 Glucose 92 Calcium 8.8 Magnesium Total Bilirubin AST ALT Alkaline Phosphatase Troponin I Total Protein Albumin Triglycerides 86 Total Cholesterol 163 LDL Cholesterol, Calc 109 H HDL Cholesterol 37 L TSH COVID-19 Source Nasal/nares SARS-CoV-2 (PCR) Negative 11/10/20 11/10/20 11/10/20 11:45 11:45 08:55 WBC RBC Hgb Hct MCV MCH MCHC RDW Plt Count MPV Immature Gran % Neutrophils % Lymphocytes % Monocytes % Eosinophils % Basophils % Nucleated RBC % Absolute Neutrophils Absolute Lymphocytes Absolute Monocytes Absolute Eosinophils Absolute Basophils Sodium 144 Potassium 3.4 L Chloride 105 Carbon Dioxide 31.7 Anion Gap 7.3 BUN 17 Creatinine 1.0 Estimated GFR/1.73 m2 >= 60.00 Glucose 101 Calcium 9.0 Magnesium 2.0 Total Bilirubin 0.6 AST 89 H ALT 194 H Alkaline Phosphatase 160 H Troponin I < 0.05 < 0.05 Total Protein 7.7 Albumin 3.4 Triglycerides Total Cholesterol LDL Cholesterol, Calc HDL Cholesterol TSH 3.78 H COVID-19 Source SARS-CoV-2 (PCR) [facility] Medical History Hx of diverticulitis of colon (~11/15/19) Family History Mother , of complications of Trauma. Was hit by a truck while crossing the road Kidney malignancy Paternal Uncle Colon cancer Social History Smoking/Tobacco Use Status: Never Smoking risk assessment performed?: Yes Alcohol Intake: current Alcohol Intake frequency: holidays/special occasions only Drug use: Never Substance use type: does not use Current gender identity: male Do you feel safe at home: Yes Do you feel safe in your relationship?: Yes
[2020-11-11 11:39] VITALS: PULSE 74
== END 2020-11-11 11:54 | disposition home or self-care (01) ==
LOC: ER 15:57 → MS 16:19
PROVIDERS: Admitting Provider Family Medicine; Emergency Provider Registered Nurse Emergency; PCP Family Medicine Adult Medicine; Visit Provider Family Medicine
DX: R20.0 Anesthesia of skin (principal); R07.89 Other chest pain; R91.8 Other nonspecific abnormal finding of lung field; R29.810 Facial weakness; Z90.5 Acquired absence of kidney; Z20.822 Contact with and (suspected) exposure to COVID-19
CPT/HCPCS: 36415; 70544; 71275; 80048; 80053; 80061; 87635; 93005; 96360; 99285; 70450; 70551; 71046; 83735; 84443; 84484; 85025; 93010; 99219; 99238; 99284; G0378; J3490